=== PATIENT | female | born 1995 ===

== ENCOUNTER → 2023-03-27 11:38 | Outpatient (CLI) | payer OTHER, SELFPAY ==
--- NOTE | 2023-03-27 | DI.MRI.S_ITS ---
PROCEDURE: MR KNEE LT WO CON INDICATIONS: PAIN IN LEFT KNEE TECHNIQUE: Noncontrast sagittal PD fast spin echo and T2 fast spin echo with fat saturation, sagittal 3-D FLASH with fat saturation; coronal T1 spin echo and PD fast spin echo with fat saturation, and axial PD fast spin echo with fat saturation through the knee. COMPARISON: None. FINDINGS: Image quality: Excellent. Menisci: The medial and lateral menisci demonstrate normal morphology and internal signal. The meniscal root ligaments appear intact. Cruciate ligaments: The anterior cruciate ligament is torn. The posterior cruciate ligament is intact. Medial structures: There is grade II sprain of the proximal aspect of the deep layer of the medial collateral ligamen. Mild sprain of the semimembranosus tendon insertions. No meniscocapsular capsular separation. Visualized portions of the pes anserinus tendons appear normal. No abnormal bursal fluid. Lateral structures: There is partial tear/sprain of the lateral collateral ligament. There is mild sprain of the popliteus tendon. There is tear at the insertion of the lateral head of the gastrocnemius muscle with associated muscle strain. The long and short heads of the biceps femoris tendon appear intact. Iliotibial band appears normal. Anterior structures: The quadriceps and patellar tendons appear intact. Patellar alignment is normal. No femoral trochlear dysplasia or ventral trochlear prominence. No edema in the infrapatellar fat pad. Bones and cartilage: No bone marrow contusions or fractures. The cartilage of the medial and lateral femorotibial compartments, as well as the patellofemoral compartment, appears normal in thickness. Joint space: There is large knee joint effusion. There is a tiny Jon's cyst. Normal appearing synovial plicae are incidentally noted. IMPRESSION: 1. ACL tear. 2. Grade II MCL sprain. 3. Mild sprain of the semimembranosus tendon insertions. 4. Posterior corner injury with partial tear/sprain of LCL, mild sprain of popliteus tendon, insertional tear of the origin of the lateral head of the gastrocnemius muscle with associated muscle strain. 5. Large knee joint effusion. 6. There is lateral head of the gastrocnemius muscle strain. Dictated by: Alba Charles M.D. on 03/27/2023 at 13:10 Approved by: Alba Charles M.D. on 03/27/2023 at 14:08
== END ==
DX: S83.512A Sprain of anterior cruciate ligament of left knee, initial encounter (principal); S83.412A Sprain of medial collateral ligament of left knee, initial encounter; S83.422A Sprain of lateral collateral ligament of left knee, initial encounter; M25.462 Effusion, left knee; S76.812A Strain of other specified muscles, fascia and tendons at thigh level, left thigh, initial encounter; M25.562 Pain in left knee
CPT/HCPCS: 73721

== ENCOUNTER 2023-07-18 19:02 | Emergency (ER) | payer OTHER, SELFPAY ==
[2023-07-18 19:31] VITALS: BP 150/69; PULSE 102; RESP 20; TEMP 38.2; O2SAT 100; BMI 25.7
--- NOTE | 2023-07-18 20:39 | ED_ITS ---
HPI - Skin/Abscess/Foreign Bdy General Chief complaint: Skin/Abscess/Foreign Body Stated complaint: allergic rxn/skin rash Time Seen by Provider: 07/18/23 20:15 Source: patient Mode of arrival: Ambulatory Limitations: no limitations History of Present Illness HPI narrative: 28-year-old female complains of itchiness and rash to chest face and arms. She has been taking multiple antibiotics both systemic orally and topically in the right ear. Approximately 2 weeks ago she had right ear pain, and was seen at [facility] with diagnosis of otitis media on the right side by her description, and was prescribed oral Augmentin antibiotic. Approximately day 5 on the oral Augmentin she had drainage on the right side, presented to would be again, who referred her to ENT. She saw ENT physician in [place] who sent to culture, started her on topical ofloxacin antibiotic, and sent a culture, and subsequently prescribed Bactrim, which she is taking now day 6. She has recently been dog sitting, not known to have any drug allergies but it is a new change as well. Earlier today she started having itchiness to her arms, that is spread to her anterior chest and to her face. She denies any shortness of breath. She denies sensation of swelling to her lips or her tongue. She denies dysuria or frequency of urination. She denies cough or shortness of breath. She does feel slight fever, not measured at home. No other persons with recent illness symptoms. In general she feels like her right ear is much much better, and would like to stop the oral antibiotic. She denies headache neck pain. Denies abdominal pain, nausea, diarrhea. Denies pain to lower extremities, does not have pain to upper extremities but has itchy rash. Related Data Previous Rx's Medication Instructions Recorded prednisone 20 mg tablet 40 mg (2 x 20 mg) PO DAILY 07/18/23 allergic reaction to drug 5 days #10 tabs Allergies Allergy/AdvReac Type Severity Reaction Status Date / Time No Known Drug Allergies Allergy Verified 07/18/23 19:31 Review of Systems Review of Systems Narrative: As per HPI Patient History Social History Smoking Status: Never smoker Smoking Status: Never smoker alcohol intake frequency: holidays/special occasions only Substance Use Type: does not use Exam Initial Vital Signs Initial Vital Signs: Vital Signs Temperature 100.8 F H 05/10/24 19:31 Pulse Rate 102 H 07/18/23 19:31 Respiratory Rate 20 07/18/23 19:31 Blood Pressure 150/69 H 07/18/23 19:31 Pulse Oximetry 100 07/18/23 19:31 Oxygen Delivery Method Room Air 07/18/23 19:31 Low-grade fever with mild tachycardia, normotensive, but is SIRS screen positive Const General: cooperative [facility] Head: atraumatic Face and sinus: face symmetric Mouth: oral mucosae normal Throat: tonsils normal Eyes Eyelids: eyelids normal Conjunctivae: conjunctivae normal Other: White sclerae, conjunctiva noninjected, no upper or lower lid edema. No obvious swelling to tongue or lips. Right TM seems to have no dullness at this time, EAC not narrowed or purulent, I could not identify a perforation on the right side, possible serous otitis fluid post treatment on exam. Right posterior auricular region and adjacent calvarium without tenderness or swelling. Left TM and pinnae unremarkable. Oropharynx unremarkable, no lesions, normal dentition, no submandibular swelling. Has maculopapular appearing rash bilateral face in non malar pattern, including the forehead, and angles of the jaw, no buccal cheek swelling, no blistering. Neck Neck: normal visual inspection and trachea midline Resp Effort & Inspection: normal respiratory effort, able to speak in complete sentences, no respiratory distress and no use of accessory muscles Auscultation: clear to auscultation bilaterally Cardio Rate: regular rate Rhythm: regular rhythm Heart Sounds: no click GI Inspection: non-distended Palpation: soft and No tender Skin General: no rashes or lesions noted and No jaundice Other: Maculopapular rash that appears forehead remainder of face anterior neck, upper chest, bilateral upper extremities Neuro General: patient alert Extrem General: no pedal edema and no calf tenderness Psych Attitude: cooperative Course Course Course Narrative: Maculopapular rash possibly related to Bactrim or other recent systemic and topical antibiotic Augmentin and ofloxacin. Also she is dog sitting, possible reaction to pet. However she does have mild fever and slight tachycardia, sirs screen positive, we will send labs, we will give IV fluid bolus, add lactate. We will check urinalysis and chest x-ray she is willing, she seems to be agreeable. Her right ear seems unremarkable and less likely the cause of her fever and tachycardia, may all be allergic reaction related. Normotensive at this time. No angioedema like symptoms. Doubt mastoiditis clinically. For treatment of itchy rash will give IV Solu-Medrol, IV Benadryl, IV Pepcid. Orders Ordered: Discontinued Medications Diphenhydramine HCl (Diphenhydramine 50 Mg/Ml Vial) 50 mg IV NOW ONE Stop: 07/18/23 20:40 Last Admin: 07/18/23 20:54 Dose: 50 mg Documented By: AB Famotidine (Famotidine 20 Mg/2 Ml Vial) 20 mg IV NOW LUIS ALBERTO Last Admin: 07/18/23 20:55 Dose: 20 mg Documented By: AB Sodium Chloride (Normal Saline 0.9%) 1,000 mls @ 1,000 mls/hr IV BOLUS ONE Stop: 07/18/23 21:37 Last Infusion: 07/18/23 21:56 Dose: Infused Documented By: Admin: 07/18/23 20:48 Dose: 1,000 mls/hr Documented By: AB Methylprednisolone (Methylprednisolone 125 Mg/2 Ml Vial) 125 mg IV NOW ONE Stop: 07/18/23 20:40 Last Admin: 07/18/23 20:54 Dose: 125 mg Documented By: AB Reevaluation(s) Reevaluation #1: Rash markedly improved, nearly resolved with steroid and antihistamine. Screening labs unremarkable, lactate normal, chest x-ray negative, urinalysis negative, with regard to mild fever and mild tachycardia, vitals stable. Her right ear seems to be significantly better by her report after her recent Bactrim and other antibiotics, possible reaction to sulfa, versus 2 other antibiotics, discontinue the Bactrim for now. Follow up with ENT as planned. Prescription for further prednisone steroid next few days, Benadryl as needed for the next few days. Return precautions discussed. Stable/improved Vital Signs Vital signs: Vital Signs - 8 hr 07/18/23 19:31 07/18/23 22:59 Temperature 100.8 F H 99.2 F Pulse Rate 102 H 105 H Respiratory Rate 20 18 Blood Pressure 150/69 H 117/75 Pulse Oximetry 100 100 Oxygen Delivery Method Room Air Room Air MDM - Skin/Abscess/Foreign Bdy Lab Data Attestation: I reviewed the patient's lab results. 07/18/23 19:40 07/18/23 19:40 Labs: Lab Results 07/18/23 07/18/23 Range/Units 19:40 21:10 WBC 3.7 L (4.5-11.0) X10^3/uL RBC 4.71 (4.0-5.2) X10^6/uL Hgb 14.4 (12.0-16.0) g/dL Hct 41.9 (36-46) % MCV 89.0 (80-100) fL MCH 30.5 (26-34) PG MCHC 34.3 (30-36) % RDW 12.9 (11.6-14.8) % Plt Count 202 (150-400) X10^3/uL Neut % (Auto) 72.4 (50-75) % Lymph % (Auto) 16.0 L (25-40) % Preston % (Auto) 3.6 (3-14) % Eos % (Auto) 7.9 H (2-4) % Baso % (Auto) 0.1 (0-2) % Neut # (Auto) 2700 (7110-7283) /uL Lymph # (Auto) 600 L (0879-5353) /uL Preston # (Auto) 100 (0-900) /uL Eos # (Auto) 300 (0-450) /uL Baso # (Auto) 0 (0-100) /uL PT 11.9 (9.4-12.5) SECONDS INR 1.0 (0.9-1.3) APTT 30 (25.1-36.5) SECONDS Sodium 137 (137-145) mmol/L Potassium 3.7 (3.4-5.1) mmol/L Chloride 105 (98-107) mmol/L Carbon Dioxide 24 (22-32) mmol/L BUN 15 (7-17) mg/dL Creatinine 1.01 (0.52-1.04) mg/dL Estimated GFR > 60 (>60) mL/min BUN/Creatinine Ratio 14.9 (6-22) Glucose 105 H (70-100) mg/dL Lactate 1.3 (0.7-2.1) mmol/L Calcium 9.1 (8.4-10.2) mg/dL Total Bilirubin 0.5 (0.2-1.3) mg/dL AST 50 H (14-36) IU/L ALT 43 H (<35) IU/L Alkaline Phosphatase 55 (38-126) U/L Total Protein 7.6 (6.3-8.2) g/dL Albumin 4.4 (3.5-5.0) g/dL Globulin 3.2 (1.7-4.1) g/dL Albumin/Globulin Ratio 1.4 (1.0-2.8) Lipase 79 (23-300) U/L Procalcitonin 0.21 (<0.5) ng/mL Urine Color Yellow Urine Appearance Clear Urine pH 6.0 (4.5-8.0) Ur Specific [place] >=1.030 H (1.000-1.035) Urine Protein Negative (Negative) Urine Glucose (UA) Negative (Negative) g/dL Urine Ketones Negative (NEGATIVE) Urine Occult Blood 1+ H (Negative) Urine Nitrate Negative (Negative) Urine Bilirubin Negative (NEGATIVE) Urine Urobilinogen 1.0 (0.2) E.U./dL Ur Leukocyte Esterase Negative (NEGATIVE) Urine RBC 0-1/hpf (0-5/HPF) Urine WBC 0-1/hpf (0-5/HPF) Ur Squamous Epith Cells 10-30 /hpf H (0-5/HPF) Urine Bacteria Many (>30) H (None) Ur Culture Indicated? Cult not indicated Vol Urine Centrifuged 10ml (spun) Critical Care Time Critical Care Time Total Critical Care Time: 35 Attestation: The high probability of a clinically significant, sudden or life threatening deterioration of the [cardiopulmonary, dermatologic, mucocutaneous] system(s) required my full and direct attention, intervention and personal management. The aggregate critical care time was [35] minutes. This time is in addition to time spent performing reported procedures but includes the following: [x] Data Review and interpretation [x] Patient assessment and monitoring of vital signs [x] Documentation x Medication orders and management Discharge Plan Departure Patient Disposition: Home Clinical Impression: Allergic reaction to drug Activity Restrictions/Additional Instructions: Recent exposure to antibiotics topical and oral for right-sided ear infection that has seemed to be getting better on most recent Bactrim, after topical ofloxacin and Augmentin antibiotics. On exam your ear does not seem to show an acute infection at this time. It is unclear if he is having reaction to the Bactrim sulfa antibiotic or 1 of the other antibiotics, or even possibly related to recent dog sitting activities. Discontinue the Bactrim for now. He responded steroids and antihistamines IV. Prednisone prescribed for an additional few days. Take Benadryl 25 mg tablets 2 tablets 4 times daily for the next few days as well. 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 Return to this/nearest emergency department for any change worsening symptoms or any concerns prior Prescriptions: New prednisone 20 mg tablet 40 mg PO DAILY 5 Days Qty: 10 0RF Stand Alone Forms: Patient Portal/API
[2023-07-18] MEDS: SODIUM CHLORIDE 0.9% 1,000 ML 1000 ML IV (20:48)
[2023-07-18 20:50] LABS: Prothrombin Time 11.9 SECONDS (9.4-12.5)
[2023-07-18 20:52] LABS: PTT Partial Thromboplastin Tim 30 SECONDS (25.1-36.5)
--- NOTE | 2023-07-18 20:52 | DI.RAD.S_ITS ---
PROCEDURE: XR CHEST 2V INDICATIONS: allergic reaction TECHNIQUE: 2 views of the chest were acquired. COMPARISON: None. FINDINGS: Surgical changes and devices: None. Lungs and pleura: Lungs are clear. No pleural effusions or pneumothorax. Mediastinum: Mediastinal contours are normal. Heart size is normal. Bones and chest wall: No suspicious bony abnormalities. Soft tissues appear unremarkable. IMPRESSION: No acute cardiopulmonary abnormality is seen. Dictated by: Yosef Fontanez M.D. on 07/18/2023 at 21:34 Approved by: Yosef Fontanez M.D. on 07/18/2023 at 21:35
[2023-07-18 20:53] LABS: Lactate (Lactic Acid) 1.3 mmol/L (0.7-2.1)
[2023-07-18 20:54] LABS: Alanine Aminotransferase 43 IU/L (<35); Albumin 4.4 g/dL (3.5-5.0); Albumin Globulin Ratio 1.4 (1.0-2.8); Alkaline Phosphatase 55 U/L (38-126); Aspartate Aminotransferase 50 IU/L (14-36); BUN Creatinine Ratio 14.9 (6-22); Bilirubin Total 0.5 mg/dL (0.2-1.3); Blood Urea Nitrogen 15 mg/dL (7-17); Calcium 9.1 mg/dL (8.4-10.2); Carbon Dioxide 24 mmol/L (22-32); Chloride 105 mmol/L (98-107); Estimated Glomerular Filt Rate > 60 mL/min (>60); Globulin 3.2 g/dL (1.7-4.1); Glucose 105 mg/dL (70-100); HEMOLYSIS < 15 (0-50); Lipase 79 U/L (23-300); Potassium 3.7 mmol/L (3.4-5.1); Sodium 137 mmol/L (137-145); Total Protein 7.6 g/dL (6.3-8.2)
[2023-07-18] MEDS: methylPREDNISolone 125 MG/2 ML VIAL IV (20:54)
[2023-07-18] MEDS: diphenhydrAMINE 50 MG/ML VIAL IV (20:54)
[2023-07-18] MEDS: FAMOTIDINE 20 MG/2 ML VIAL IV (20:55)
[2023-07-18 21:00] LABS: Add Manual Diff / Slide Review NO; Basophils Absolute Auto 0 /uL (0-100); Basophils Percent Auto 0.1 % (0-2); Eosinophils Absolute Auto 300 /uL (0-450); Eosinophils Percent Auto 7.9 % (2-4); Hematocrit 41.9 % (36-46); Hemoglobin 14.4 g/dL (12.0-16.0); Lymphocytes Absolute Auto 600 /uL (1100-4500); Mean Corpuscular HGB Conc 34.3 % (30-36); Mean Corpuscular Hemoglobin 30.5 PG (26-34); Monocytes Absolute Auto 100 /uL (0-900); Monocytes Percent Auto 3.6 % (3-14); Neutrophils Absolute Auto 2700 /uL (1500-7000); Neutrophils Percent Auto 72.4 % (50-75); Platelet Count 202 X10^3/uL (150-400); Red Blood Cell Count 4.71 X10^6/uL (4.0-5.2); Red Cell Distribution Width 12.9 % (11.6-14.8); White Blood Cell Count 3.7 X10^3/uL (4.5-11.0)
[2023-07-18 21:10] LABS: Procalcitonin 0.21 ng/mL (<0.5)
[2023-07-18 21:25] LABS: Appearance Urine UA CLEAR; Bilirubin Urine UA NEGATIVE (NEGATIVE); Color Urine UA YELLOW; Glucose Urine UA NEGATIVE (Negative); Ketones Urine UA NEGATIVE (NEGATIVE); Leukocyte Esterase Urine UA NEGATIVE (NEGATIVE); Nitrite Urine UA NEGATIVE (Negative); Occult Blood Urine UA 1+ (Negative); Protein Urine UA NEGATIVE (Negative); Specific Gravity Urine UA >=1.030 (1.000-1.035)
[2023-07-18 21:50] LABS: Bacteria Urine Many (>30); Culture Indicated Urine Cult Not Indicated; RBC Urine 0-1/HPF (0-5/HPF); Squamous Epithelial Cell Urine 10-30 /HPF (0-5/HPF); Urine Volume 10mL (spun); WBC Urine 0-1/HPF (0-5/HPF)
--- NOTE | 2023-07-18 22:53 | PC.NURSE ---
IV dc'd catheter intact. Waiting on discharge at this time.
[2023-07-18 22:59] VITALS: BP 117/75; PULSE 105; RESP 18; TEMP 37.3; O2SAT 100
== END 2023-07-18 23:32 | disposition home or self-care (01) ==
PROVIDERS: Emergency Provider Emergency Medicine
DX: R21 Rash and other nonspecific skin eruption (principal); T50.905A Adverse effect of unspecified drugs, medicaments and biological substances, initial encounter; R50.9 Fever, unspecified; R00.0 Tachycardia, unspecified
CPT/HCPCS: 36415; 71046; 80053; 81001; 83605; 83690; 84145; 85025; 85610; 85730; 96361; 96374; 96375; 99284; J1200; J2919